=== PATIENT | female | born 1965 | race Caucasian/White ===

== ENCOUNTER → 2018-05-28 14:41 | Outpatient (CLI) | payer BC, SELFPAY ==
--- NOTE | 2018-05-28 14:42 | DI.US.S_ITS ---
PROCEDURE: US PELVIC COMPLETE INDICATIONS: ABNORMAL UTERINE BLEEDING. Patient reports sudden onset of heavy bleeding with prior history of endometrial ablation in 2014, per technologist. TECHNIQUE: Real-time scanning was performed of the pelvic organs, with image documentation. Additional endovaginal scanning was necessary due to incomplete visualization of the adnexal and endometrial structures by transabdominal scanning. COMPARISON: [facility], , US PELVIC, 12/12/2014, 13:37. [facility], , PELVIC COMPLETE, 09/27/2014, 14:37. [facility], ABDOMEN COMPLETE, 08/29/2013, 8:13. FINDINGS: Transabdominal scanning: Limited scanning through the kidneys shows no hydronephrosis. No pathologic free abdominal or pelvic fluid. Endovaginal scanning: Uterus: Uterus is normal in size at 9.5 x 4.7 x 7.1 cm. The endometrium measures 9 mm in combined thickness. There is a 1.1 x 1.2 x 0.9 cm submucosal fibroid at the midline uterus, which previously measured 2.1 x 1.9 x 1.9 cm on comparison exam of 09/27/14. Ovaries: Right ovary measures 1.9 x 1.8 x 1.8 cm. Left ovary measures 2.6 x 2.5 x 2.2 cm. There is a 2.1 x 2.0 x 1.6 cm left ovarian cyst/follicle. No free fluid identified within the pelvis. IMPRESSION: #1. Endometrial thickening up to 9 mm, which would be abnormal for a patient status post prior endometrial ablation as reported. Endometrial biopsy/sampling recommended. #2. 1.2 cm submucosal uterine fibroid, stable in appearance to comparison exam of 09/27/14. These findings and recommendations were discussed with the ordering provider Beronica Phillips PA-C at 4:10 PM on 05/28/[address] Oviedo. Dictated by: Imitaz Oviedo M.D. on 05/28/2018 at 16:03 Approved by: Imtiaz Oviedo M.D. on 05/28/2018 at 16:15
== END ==
PROVIDERS: Family Provider Obstetrics & Gynecology; PCP Family Medicine; Visit Provider Physician Assistant
DX: D25.0 Submucous leiomyoma of uterus (principal); N93.9 Abnormal uterine and vaginal bleeding, unspecified; R93.8 Abnormal findings on diagnostic imaging of other specified body structures
CPT/HCPCS: 76830; 76856